=== PATIENT | male | born 1945 | race Caucasian/White ===

== ENCOUNTER 2017-02-05 22:46 | Emergency (ER) | payer OTHER ==
[~2017-02-05] VITALS: Ht 165.1 cm; Wt 59.9 kg
[2017-02-06 01:17] VITALS: BP 109/73
== END 2017-02-06 01:17 | disposition home or self-care (01) ==
LOC: EME 22:46 → EXP 22:46
DX: S01.81XA Laceration without foreign body of other part of head, initial encounter (principal); M79.641 Pain in right hand; W19.XXXA Unspecified fall, initial encounter; R42 Dizziness and giddiness; Z23 Encounter for immunization; I10 Essential (primary) hypertension; H54.8 Legal blindness, as defined in USA; Z85.46 Personal history of malignant neoplasm of prostate
CPT/HCPCS: 99281; 99284

== ENCOUNTER 2017-03-01 13:01 | Inpatient (IN) | payer OTHER ==
[~2017-03-01] VITALS: Ht 167.6 cm; Wt 56.8 kg
[2017-03-01 14:05] LABS: HEMATOCRIT 47.3 % (38.0-50.0); MCH 31.8 PG (29.0-34.0); MCHC 33.8 G/DL (30.0-36.0); PLATELET COUNT 260 K/uL (156-360); RBC DIS.WIDTH-CV 13.6 % (11.8-14.6); RBC DIS.WIDTH-SD 46.7 % (39-53); RED BLOOD COUNT 5.03 M/uL (4.00-5.50); WHITE BLOOD COUNT 11.5 K/uL (4.1-10.2)
[2017-03-01 14:12] LABS: CHLORIDE 101 mEq/L (99-109); POTASSIUM 5.1 mEq/L (3.7-5.4); SODIUM 136 mEq/L (136-147)
[2017-03-01 14:14] LABS: GLUCOSE 105 mg/dL (70-99)
[2017-03-01 14:18] LABS: GFR ESTIMATE (CALCULATED) > 59 mL/min/ (58.99-99999)
[2017-03-01 14:19] LABS: UREA NITROGEN (BUN) 14 mg/dL (9-23)
[2017-03-01 16:31] LABS: TROP-I INTERPRETATION NEGATIVE; TROPONIN-I 0.03 ng/mL (0.0-0.30)
[2017-03-01] MEDS ORDERED: MECLIZINE HCL25 MG PO (16:51)
[2017-03-01] MEDS ORDERED: SINGULAIR10 MG PO (16:51)
[2017-03-01] MEDS ORDERED: FLONASE16 G1 BOTH NARES (16:51)
[2017-03-01] MEDS ORDERED: DILANTIN100 MG PO (16:51)
[2017-03-01] MEDS ORDERED: LISINOPRIL10 MG PO (16:51)
[2017-03-01 19:51] LABS: APPEARANCE CLEAR ((CLEAR)); BILIRUBIN NEGATIVE; BLOOD MODERATE; COLOR YELLOW ((YELLOW)); GLUCOSE (STRIP) NEGATIVE; KETONES NEGATIVE; LEUKOCYTES NEGATIVE; NITRITE NEGATIVE; PROTEIN (STRIP) 30; SPECIFIC GRAVITY 1.013 (1.000-1.030); UROBILINOGEN 0.2 MG/DL (0.2-1.0)
[2017-03-01 19:58] LABS: BACTERIA NONE SEEN /HPF; EPITHELIAL CELLS NONE SEEN /HPF; MUCUS TRACE /LPF; RED BLOOD CELLS 0-5 /HPF (0-5); UCUL ADDED? NO; WHITE BLOOD CELLS 0-5 /HPF (0-5)
[2017-03-01 20:42] LABS: Estimated Average Glucose 111 mg/dL (70-123); HEMOGLOBIN A1c (GLYCOHEMOGLOB) 5.5 % HGB (Below 5.7)
[2017-03-01 20:46] LABS: TOTAL PROTEIN 7.3 g/dL (6.4-8.3)
[2017-03-01 20:48] LABS: TOTAL BILIRUBIN 0.5 mg/dL (0.0-1.0)
[2017-03-01 20:49] LABS: ALKALINE PHOSPHATASE 11 IU/L (3-129)
[2017-03-01 20:51] LABS: AST (GOT) 23 IU/L (2-34); DIRECT BILIRUBIN 0.2 mg/dL (0.0-0.3)
[2017-03-01 20:52] LABS: ALT (GPT) 26 IU/L (3-49)
[2017-03-01 21:05] LABS: PROSTATIC SPEC. AG. < 0.1 nG/mL (0-4.0)
[2017-03-01 21:26] LABS: HDL CHOLESTEROL 79 MG/DL (Desirable>=40); LDL CHOLESTEROL 76 mg/dL (Desirable<100); NON-HDL CHOLESTEROL 84 mg/dL (Desirable<160); TOTAL CHOLESTEROL 163 mg/dL (Desirable<200); TRIGLYCERIDES 41 MG/DL (Normal: <150)
[2017-03-01 21:48] LABS: THYROTROPIN (TSH) 1.7 MIU/L (0.4-5.5)
[2017-03-01 22:04] VITALS: BP 125/75
[2017-03-02 03:21] VITALS: BP 106/61
[2017-03-02 07:06] VITALS: BP 109/58
[2017-03-02 11:00] VITALS: BP 133/80
[2017-03-02 15:18] VITALS: BP 149/88
[2017-03-02 19:13] VITALS: BP 152/96
[2017-03-02 23:40] VITALS: BP 140/79
[2017-03-03 03:13] VITALS: BP 146/80
[2017-03-03 07:49] VITALS: BP 110/67
[2017-03-03 11:47] VITALS: BP 107/58
[2017-03-03 16:00] VITALS: BP 101/67
[2017-03-03 20:00] VITALS: BP 112/66
[2017-03-03 23:45] VITALS: BP 124/61
[2017-03-04 03:11] VITALS: BP 122/66
[2017-03-04 07:18] VITALS: BP 115/63
[2017-03-04 11:02] VITALS: BP 103/69
[2017-03-04 15:05] VITALS: BP 95/67
[2017-03-04 20:12] VITALS: BP 128/71
[2017-03-05] VITALS: BP 132/68
[2017-03-05 04:13] VITALS: BP 111/59
[2017-03-05 06:43] LABS: HEMATOCRIT 40.8 % (38.0-50.0); MCH 30.6 PG (29.0-34.0); MCHC 33.3 G/DL (30.0-36.0); MCV 91.9 FL (86-99); PLATELET COUNT 272 K/uL (156-360); RBC DIS.WIDTH-CV 13.2 % (11.8-14.6); RED BLOOD COUNT 4.44 M/uL (4.00-5.50); WHITE BLOOD COUNT 7.7 K/uL (4.1-10.2)
[2017-03-05 06:44] LABS: HEMOGLOBIN 13.6 G/DL (12.5-16.6)
[2017-03-05 06:57] LABS: CHLORIDE 105 MEQ/L (99-109); CREATININE 0.8 MG/DL (0.6-1.3); GFR ESTIMATE (CALCULATED) > 59 mL/min/ (58.99-99999); GLUCOSE 94 mg/dL (70-99); POTASSIUM 4.5 MEQ/L (3.7-5.4); SODIUM 140 MEQ/L (136-147); UREA NITROGEN (BUN) 14 mg/dL (9-23)
[2017-03-05 07:00] VITALS: BP 104/51
[2017-03-05 11:07] VITALS: BP 132/60
[2017-03-05 15:11] VITALS: BP 165/79
[2017-03-05 19:36] VITALS: BP 119/69
[2017-03-06] VITALS (7 sets, daily range): BP systolic 97–130; BP diastolic 56–90
[2017-03-07 02:17] VITALS: BP 130/74
[2017-03-07 03:59] VITALS: BP 118/56
[2017-03-07 08:21] VITALS: BP 125/65
[2017-03-07 12:00] VITALS: BP 134/75
[2017-03-07 15:10] VITALS: BP 130/73
[2017-03-07 19:34] VITALS: BP 129/73
[2017-03-08 00:26] VITALS: BP 136/63
[2017-03-08 04:26] VITALS: BP 122/56
[2017-03-08 05:53] LABS: HEMATOCRIT 40.9 % (38.0-50.0); HEMOGLOBIN 13.7 G/DL (12.5-16.6); MCH 31.9 PG (29.0-34.0); MCHC 33.5 G/DL (30.0-36.0); MCV 95.1 FL (86-99); PLATELET COUNT 250 K/uL (156-360); RBC DIS.WIDTH-CV 13.5 % (11.8-14.6); RBC DIS.WIDTH-SD 47.5 % (39-53)
[2017-03-08 06:11] LABS: CHLORIDE 106 MEQ/L (99-109); CREATININE 0.7 MG/DL (0.6-1.3); GFR ESTIMATE (CALCULATED) > 59 mL/min/ (58.99-99999); GLUCOSE 96 mg/dL (70-99); POTASSIUM 4.1 MEQ/L (3.7-5.4); SODIUM 141 MEQ/L (136-147); UREA NITROGEN (BUN) 9 mg/dL (9-23)
[2017-03-08 08:08] VITALS: BP 133/74
[2017-03-08 12:15] VITALS: BP 128/66
[2017-03-08 15:25] VITALS: BP 123/77
[2017-03-08 20:11] VITALS: BP 129/73
[2017-03-09] VITALS (7 sets, daily range): BP systolic 97–145; BP diastolic 57–79
[2017-03-10 04:17] VITALS: BP 122/69
[2017-03-10 08:48] VITALS: BP 135/79
[2017-03-10 10:32] VITALS: BP 117/69
[2017-03-10 16:43] VITALS: BP 151/80
[2017-03-10 19:52] VITALS: BP 128/76
[2017-03-10 23:05] VITALS: BP 130/85
[2017-03-11 04:57] VITALS: BP 124/73
[2017-03-11 07:58] VITALS: BP 141/84
[2017-03-11 13:08] VITALS: BP 124/75
[2017-03-11 16:12] VITALS: BP 130/82
[2017-03-11 19:19] VITALS: BP 138/63
[2017-03-11 23:18] VITALS: BP 125/74
[2017-03-12 03:14] VITALS: BP 111/59
[2017-03-12] MEDS ORDERED: ENDOCET 5-3251 EACH PO (08:13)
[2017-03-12 08:29] VITALS: BP 112/73
[2017-03-12 11:15] VITALS: BP 121/70
[2017-03-12 16:02] VITALS: BP 131/74
[2017-03-12 19:55] VITALS: BP 133/87
[2017-03-12 23:35] VITALS: BP 124/72
[2017-03-13 05:15] VITALS: BP 128/76
[2017-03-13 08:08] VITALS: BP 129/67
[2017-03-13 12:07] VITALS: BP 117/72
[2017-03-13 16:09] VITALS: BP 132/94
== END 2017-03-13 16:36 | DRG 472 ==
LOC: EME 13:01 → 5SOUTH 19:46 → EDOF 19:46 → ENRESERV 19:47 → 5SOUTH 21:46 → ENRESERV 03-06 22:32 → 3EAST 03-07 02:02
PROVIDERS: Emergency Medicine; Hospitalist; Internal Medicine
PROC: 0RB30ZZ Excision of Cervical Vertebral Disc, Open Approach (ICD-10-PCS; principal; 2017-03-07)
PROC: 0RG10A0 Fusion of Cervical Vertebral Joint with Interbody Fusion Device, Anterior Approach, Anterior Column, Open Approach (ICD-10-PCS; principal; 2017-03-07)
DX: M47.12 Other spondylosis with myelopathy, cervical region (principal); S82.891A Other fracture of right lower leg, initial encounter for closed fracture; G93.89 Other specified disorders of brain; I10 Essential (primary) hypertension; H54.8 Legal blindness, as defined in USA; G40.909 Epilepsy, unspecified, not intractable, without status epilepticus; K59.00 Constipation, unspecified; I44.0 Atrioventricular block, first degree; M48.02 Spinal stenosis, cervical region; W18.30XA Fall on same level, unspecified, initial encounter; Z68.1 Body mass index [BMI] 19.9 or less, adult; R13.10 Dysphagia, unspecified; H91.90 Unspecified hearing loss, unspecified ear; R32 Unspecified urinary incontinence; R29.6 Repeated falls; Q89.9 Congenital malformation, unspecified; M25.78 Osteophyte, vertebrae; Z85.46 Personal history of malignant neoplasm of prostate; Z86.73 Personal history of transient ischemic attack (TIA), and cerebral infarction without residual deficits; Z80.42 Family history of malignant neoplasm of prostate; Z80.1 Family history of malignant neoplasm of trachea, bronchus and lung; Z80.0 Family history of malignant neoplasm of digestive organs
CPT/HCPCS: 70450; 70551; 71020; 72020; 72125; 72141; 73610; 76000; 80048; 80061; 80076; 80185; 81003; 82607; 83036; 84443; 84484; 85027; 85651; 86038; 92610 GN; 93005; 93880; 95819; 97530 GO; 97530 GP; 99281; 99285; C1713; C1821; G0103; J0690; J1100; J1170; J1650; J2001; J2250; J2405; J2710; J3010; J3480; J7030